=== PATIENT | female | born 1970 | race Caucasian/White ===

== ENCOUNTER 2022-10-10 19:12 | Emergency (ER) | payer OTHER, SELFPAY ==
[2022-10-10 19:13] VITALS: BP 134/89; PULSE 101; RESP 20; TEMP 36.6; O2SAT 97; BMI 24.3
[2022-10-10] MEDS: BACITRACIN OINTMENT 28.4 GM TUBE 1 APPLIC TOPICAL (19:33)
[2022-10-10] MEDS: ADACEL DIPH,PERTUSS(ACELL),TET VAC/PF 0.5 ML ADULT SYRINGE IM (19:35)
--- NOTE | 2022-10-10 19:40 | ED.ANIMALBI1 ---
HPI - Animal Bite General Chief Complaint: Animal Bite Stated Complaint: DOG BITE Time Seen by Provider: 10/10/22 19:18 Source: patient Mode of arrival: walk-in Limitations: no limitations History of Present Illness HPI narrative: patient is a 52-year-old female who presents to the emergency department for the evaluation of a dog bite to the left buttock that occurred at work earlier today. She is a [employer] employee and states she was bit on the left buttock by a Irish Linn. She was wearing cargo shorts at the time. She has an unknown last tetanus. She sustained puncture wounds to the left buttock, no active bleeding at this time. She had no other associated injuries. She is able to ambulate. Related Data Previous Rx's Medication Instructions Recorded amoxicillin 875 mg-potassium 1 tab PO BID #20 tabs 10/10/22 clavulanate 125 mg tablet hydrocodone 5 mg-acetaminophen 300 1 tab PO Q6H PRN pain #12 tabs 10/10/22 mg tablet Allergies Allergy/AdvReac Type Severity Reaction Status Date / Time No Known Drug Allergies Allergy Verified 10/10/22 19:16 Review of Systems ROS Constitutional Denies: fever or chills Ears, nose, mouth, and throat Denies: neck pain Cardiovascular Denies: chest pain Respiratory Denies: shortness of breath or cough Gastrointestinal Denies: nausea or vomiting Musculoskeletal Denies: back pain or neck pain Integumentary/Breast Denies: rash Exam Narrative Exam Narrative: Gen.: Awake, alert, in no distress Head: Normocephalic, atraumatic ENT: Moist mucous membranes Respiratory: No respiratory distress Extremities: Moves extremities equally Psych: Normal mood and affect Neuro: No focal neuro deficit Skin: Warm, dry, with five superficial puncture wounds noted to the left buttock. No deep laceration or subcutaneous tissue exposure noted. Small amount of ecchymosis noted around the inferior puncture wounds. No bony tenderness, no active bleeding or purulence. Constitutional Vital Signs - 24 hr 10/10/22 19:13 Temperature 97.9 F Pulse Rate [Monitor] 101 H Respiratory Rate 20 Blood Pressure [Left Arm] 134/89 H Pulse Oximetry 97 Oxygen Delivery Method Room Air Course Vital Signs Vital signs: Vital Signs Temperature 97.9 F 10/10/22 19:13 Pulse Rate 101 H 10/10/22 19:13 Respiratory Rate 20 10/10/22 19:13 Blood Pressure 134/89 H 10/10/22 19:13 Pulse Oximetry 97 10/10/22 19:13 Oxygen Delivery Method Room Air 10/10/22 19:13 Temperature 97.9 F 10/10/22 19:13 Pulse Rate 101 H 10/10/22 19:13 Respiratory Rate 20 10/10/22 19:13 Blood Pressure 134/89 H 10/10/22 19:13 Pulse Oximetry 97 10/10/22 19:13 Oxygen Delivery Method Room Air 10/10/22 19:13 MDM - Animal Bite MDM Narrative Medical decision making narrative: tetanus updated, wound care provided and patient is started on Augmentin for home. Follow-up with occupational health. She was given a short course of analgesics as needed and encouraged to apply ice to the area. Return to the Emergency Room if symptoms change or worsen. Medical Records Attestation: I reviewed the patient's medical records. Discharge Plan Discharge Chief Complaint: Animal Bite Clinical Impression: Puncture wound, Dog bite Patient Disposition: Home, Self-Care Time of Disposition Decision: 19:26 Condition: Good Prescriptions / Home Meds: New amoxicillin-pot clavulanate 875-125 mg tablet 1 tab PO BID Qty: 20 0RF hydrocodone-acetaminophen 5-300 mg tablet 1 tab PO Q6H PRN (Reason: pain) Qty: 12 0RF Instructions: Animal Bite (ED) Additional Instructions: Follow up with occupational health in 3-5 days Stand Alone Forms: Portal Instructions
--- NOTE | 2022-10-10 19:42 | PC.NURSE ---
pt presents to ED because patient states that she works for [employer] and was bit by a clients bermudian elisa. pt states that the dog animal maintenance supervisor said dog was up to date on immunizatiions. pt has 5 puncture wounds on left buttocks. pt called occupational health nurse supervisor and doesn't need workmans comp testing completed. pt filling out dog bite forms and workmans comp paper work. bacitracin applied to puncture wounds and dressing applied.
== END 2022-10-10 20:05 | disposition home or self-care (01) ==
PROVIDERS: Emergency Provider Emergency Medicine
DX: S31.825A Open bite of left buttock, initial encounter (principal); W54.0XXA Bitten by dog, initial encounter; Z23 Encounter for immunization
CPT/HCPCS: 90471; 90715; 99283